=== PATIENT | male | born 1950 ===

== ENCOUNTER 2017-03-21 17:58 | Inpatient (IN) | payer MEDICARE ==
[2017-03-21] MEDS ORDERED: Sodium Chloride 0.9% 500 ML IV STA (18:31)
[2017-03-21 18:40] LABS: BASO # 0.1 K/uL (0.0-0.2); BASO % 0.6 % (0.0-2.0); EOS # 0.2 K/uL (0.0-0.7); EOS % 1.7 % (0.0-4.0); LYMPH # 2.5 K/uL (1.0-4.3); LYMPH % 27.2 % (20.0-40.0); MEAN CELL VOLUME 88.6 fl (80.0-94.0); MEAN CORPUSCULAR HEMOGLOBIN 29.6 pg (27.0-31.0); MEAN CORPUSCULAR HGB CONC 33.4 g/dL (33.0-37.0); MEAN PLATELET VOLUME 7.7 fl (7.2-11.7); MONO # 0.7 K/uL (0.0-0.8); MONO % 7.3 % (0.0-10.0); NEUT # 5.8 K/uL (1.8-7.0); NEUT % 63.2 % (50.0-75.0); NRBC % 0.1 % (0.0-0.0); RED CELL DISTRIBUTION WIDTH 13.3 % (11.5-14.5); WHITE BLOOD COUNT 9.1 K/uL (4.8-10.8)
--- NOTE | 2017-03-21 18:50 | ED PDOC ---
HPI: Chest Pain Time Seen by Provider: 03/21/17 18:13 Chief Complaint (Nursing): Chest Pain Chief Complaint (Provider): Chest Pain History Per: Patient History/Exam Limitations: no limitations Onset/Duration Of Symptoms: Days (x2 days) Current Symptoms Are (Timing): Still Present Additional Complaint(s): 67 y/o male with a past medical history of Pre-Diabetes who presents to the emergency department with a complaint of constant chest pain. Has had left shoulder pain x30 days. Describes pain as a poking sensation every time he takes a deep breath. Reports visiting Dr. Day who preformed EKG and x-ray with no acute findings on both. Denies taking medications for the relief of symptoms, nausea, vomiting, diarrhea, headache, abdominal pain, generalized weakness, numbness, dyspnea, or tingling. PMD: Dr. Mallory Day MD Past Medical History Reviewed: Historical Data, Nursing Documentation, Vital Signs Vital Signs: Last Vital Signs Temp 97.4 F L 03/21/17 18:15 Pulse 94 H 03/21/17 18:15 Resp 18 03/21/17 18:15 BP 138/80 03/21/17 18:15 Pulse Ox 97 03/21/17 18:57 - Medical History PMH: Diabetes (Pre-diabetic) - Surgical History Surgical History: No Surg Hx - Family History Family History: States: Unknown Family Hx - Living Arrangements Living Arrangements: With Family - Social History Current smoker - smoking cessation education provided: No Alcohol: Occasional Drugs: Denies - Immunization History Hx Tetanus Toxoid Vaccination: No Hx Influenza Vaccination: No Hx Pneumococcal Vaccination: No - Home Medications Home Medications: Ambulatory Orders Medication Instructions Recorded Tramadol HCl [Ultram] 50 mg PO BID PRN #14 tablet 08/27/16 oxyCODONE/Acetaminophen [Percocet 1 ea PO Q6H PRN #15 tab 09/10/16 5/325 mg Tab] - Allergies Allergies/Adverse Reactions: Allergies Allergy/AdvReac Type Severity Reaction Status Date / Time No Known Allergies Allergy Verified 03/21/17 18:07 Review of Systems ROS Statement: Except As Marked, All Systems Reviewed And Found Negative Cardiovascular: Positive for: Chest Pain (with deep breaths described as "poking.") Gastrointestinal: Negative for: Nausea, Vomiting, Abdominal Pain, Diarrhea Musculoskeletal: Positive for: Shoulder Pain (Left) Neurological: Negative for: Weakness, Numbness (or tingling), Headache Physical Exam - Reviewed Nursing Documentation Reviewed: Yes Vital Signs Reviewed: Yes - Physical Exam Appears: Positive for: Non-toxic, No Acute Distress Head Exam: Positive for: ATRAUMATIC, NORMAL INSPECTION, NORMOCEPHALIC Skin: Positive for: Normal Color, Warm, Dry Eye Exam: Positive for: Normal appearance, EOMI, PERRL ENT: Positive for: Normal ENT Inspection. Negative for: Pharyngeal Erythema Neck: Positive for: Normal, Supple Cardiovascular/Chest: Positive for: Regular Rate, Rhythm. Negative for: Murmur Respiratory: Positive for: Normal Breath Sounds. Negative for: Accessory Muscle Use, Wheezing, Respiratory Distress Gastrointestinal/Abdominal: Positive for: Normal Exam, Soft. Negative for: Tenderness Back: Positive for: Normal Inspection. Negative for: L CVA Tenderness, R CVA Tenderness Extremity: Positive for: Normal ROM. Negative for: Tenderness, Pedal Edema, Calf Tenderness Neurologic/Psych: Positive for: Alert, Oriented - Laboratory Results Result Diagrams: 03/21/17 18:30 03/21/17 18:30 Interpretation Of Abn Labs: no acute - ECG ECG: Positive for: Interpreted By Me, Viewed By Me ECG Rhythm: Positive for: Normal QRS, Normal ST Segment, Sinus Rhythm O2 Sat by Pulse Oximetry: 97 (RA) Pulse Ox Interpretation: Normal - Radiology X-Ray: Interpreted by Me, Viewed By Ny X-Ray Interpretation: No Acute Disease - Progress ED Course And Treament: 1928: Stable. AAOx3. Pain free. Tolerated PO. Spoke with Dr. Coley. Will admit tele obs. Will give further orders when pt. reaches floor. Medical Decision Making Medical Decision Making: Time: 18:13 Initial impression: Chest Pain Initial plan: --Electrocardiogram STAT --COMP Metabolic Panel --Troponin I Stat --EKG-ED (EDNURTX) --Partial Thromboplastin Time (COAG) --Prothrombin Time (COAG) --Chest Portable (RAD) --Aspirin 325 mg PO --Sodium Chloride 500 ml IV 100 mls/hr --Revaluation Scribe Attestation: Documented by Keisha Lipscomb, acting as a scribe for Vidal Harris MD. Provider Scribe Attestation: All medical record entries made by the Scribe were at my direction and personally dictated by me. I have reviewed the chart and agree that the record accurately reflects my personal performance of the history, physical exam, medical decision making, and the department course for this patient. I have also personally directed, reviewed, and agree with the discharge instructions and disposition. Disposition - Clinical Impression Clinical Impression: Chest pain - Patient ED Disposition Is Patient to be Admitted: Yes Counseled Patient/Family Regarding: Studies Performed, Diagnosis - Disposition Disposition Time: 19:33 Condition: FAIR - Pt Status Changed To: Hospital Disposition Of: Observation - POA Present On Arrival: None Core Measure Indicators: Chest Pain
[2017-03-21 18:51] LABS: PARTIAL THROMBOPLASTIN TIME 34.2 Seconds (25.6-37.1)
[2017-03-21 18:53] LABS: ALB/GLOB RATIO 1.3 (1.0-2.1); ALKALINE PHOSPHATASE 108 U/L (38-126); ALT/SGPT 62 U/L (21-72); AST/SGOT 47 U/L (17-59); BILIRUBIN,TOTAL 0.4 mg/dl (0.2-1.3); BLOOD UREA NITROGEN 17 mg/dl (9-20); CALCIUM 9.3 mg/dL (8.4-10.2); CARBON DIOXIDE 28 mmol/L (22-30); CHLORIDE 104 mmol/L (98-107); GFR AFRICAN-AMERICAN > 60; GLUCOSE,RANDOM 79 mg/dL (75-110); POTASSIUM 4.2 MMOL/L (3.6-5.0); SODIUM 141 mmol/l (132-148)
[2017-03-22 08:45] LABS: THYROID STIMULATING HORMONE 5.55 mIU/ML (0.46-4.68)
[2017-03-22] MEDS ORDERED: Enoxaparin 40 mg Syringe SC SCH (09:00)
--- NOTE | 2017-03-22 10:31 | CARD ---
APPROVED REPORT EXAM: Two-dimensional and M-mode echocardiogram with Doppler and color Doppler. Other Information Quality : GoodRhythm : NSR INDICATION Cardiac Disease: CAD 2D DIMENSIONS IVSd1.15 (0.7-1.1cm)LVDd4.07 (3.9-5.9cm) LVOT Diameter2.38 (1.8-2.4cm)PWd0.96 (0.7-1.1cm) IVSs0.97 (0.8-1.2cm)LVDs3.32 (2.5-4.0cm) FS (%) 18.4 %PWs1.13 (0.8-1.2cm) M-Mode DIMENSIONS Left Atrium (MM)4.09 (2.5-4.0cm)Aortic Root3.21 (2.2-3.7cm) Aortic Cusp Exc.2.03 (1.5-2.0cm) Mitral Valve MV E Msgsvdhh00.2cm/sMV DECEL [id number] A Hfpwqism54.0cm/s MV QXI35rtB/A ratio1.0MVA (PHT)3.16cm2 TDI Lateral E' Peak V9.37cm/sMedial E' Peak V9.29cm/sE/Lateral E'8.6 E/Medial E'8.6 LEFT VENTRICLE The left ventricle is normal in size. There is normal left ventricular wall thickness. The left ventricular function is normal. The left ventricular ejection fraction is - 70%. There is normal LV segmental wall motion. Transmitral Doppler flow pattern is Grade I-abnormal relaxation pattern. No left ventricle thrombus noted on this study. There is no ventricular septal defect visualized. There is no left ventricular aneurysm. There is no mass noted in the left ventricle. RIGHT VENTRICLE The right ventricle is normal size. There is normal right ventricular wall thickness. The right ventricular systolic function is normal. ATRIA The left atrium size is normal. The right atrium size is normal. The interatrial septum is intact with no evidence for an atrial septal defect. AORTIC VALVE The aortic valve is normal in structure and function. No aortic regurgitation is present. There is no aortic valvular stenosis. MITRAL VALVE The mitral valve is normal in structure and function. There is no evidence of mitral valve prolapse. There is no mitral valve stenosis. Mitral regurgitation is trace. TRICUSPID VALVE The tricuspid valve is normal in structure and function. There is no tricuspid valve regurgitation noted. There is no tricuspid valve prolapse or vegetation. There is no tricuspid valve stenosis. PULMONIC VALVE The pulmonary valve is normal in structure and function. Doppler studies of the PV were not performed. GREAT VESSELS The aortic root is normal in size. The IVC is normal in size and collapses >50% with inspiration. PERICARDIAL EFFUSION The pericardium appears normal. There is no pleural effusion. <Conclusion> The left ventricle is normal in size and wall thickness. The left ventricular function is normal. The left ventricular ejection fraction is - 70%. The left atrium, right ventricle and right atrium are normal in size. The mitral, aortic and tricuspid valves are normal. There is trace mitral regurgitation.
--- NOTE | 2017-03-22 10:47 | CARD ---
APPROVED REPORT EKG Measurement Heart [id number] <Conclusion> Normal sinus rhythm Early repolarization Normal ECG
--- NOTE | 2017-03-22 13:12 | RAD ---
COMPARISON: No prior study available comparison FINDINGS: LUNGS: Poor inspiration with low lung volumes, crowded bronchovascular markings and mild bibasilar atelectasis right greater than left. Possibility of developing infiltrate should be excluded followup radiographs. Questionable small right-sided effusion. There are 2 tiny densities seen in the left lower lung field which could represent vessel on end artifact however tiny granulomas or nodular densities not excluded. Followup nonemergent CT scan chest recommended for further evaluation to exclude other pathology. . Heart is upper limits of normal/ borderline enlarged. Mild multilevel degenerative spondylosis of the thoracic spine. There is a very subtle dextroscoliosis centered in the upper/mid thoracic region as well. Minor degenerative changes both acromioclavicular joints. Impression: Poor inspiration with low lung volumes, crowded bronchovascular markings and mild bibasilar atelectasis right greater than left. Possibility of developing infiltrate should be excluded followup radiographs. Questionable small right-sided effusion. There are 2 tiny densities seen in the left lower lung field which could represent vessel on end artifact however tiny granulomas or nodular densities not excluded. Followup nonemergent CT scan chest recommended for further evaluation to exclude other pathology. Note that this report was placed in PA review folder for followup
--- NOTE | 2017-03-22 14:14 | HP ---
CHIEF COMPLAINT: Chest pain. HISTORY OF PRESENT ILLNESS: This is a 67-year-old male, known case of diabetes, who was having chest pain, so the patient was brought to Emergency Room and was admitted for further management. REVIEW OF SYSTEMS: Positive for chest pain and left shoulder pain which is present for about 3 days, more so on taking deep breath. The patient was seen by Dr. Day his primary care physician. Re view of systems otherwise is negative for headache, dizziness, syncope, loss of consciousness, shortn ess of breath, nausea, vomiting, diarrhea, constipation, any new joint or extremity pain. Review of systems positive for chest pain. Review of systems of all other organ systems is unremarkable. PAST MEDICAL HISTORY: Significant for diabetes. PAST SURGICAL HISTORY: Unremarkable. PERSONAL HISTORY: The patient is currently a nonsmoker, nondrinker, no substance abuse. MEDICATIONS: The patient is on Tylenol and Percocet. ALLERGIES: The patient is not allergic to any medications. FAMILY HISTORY: Noncontributory. PHYSICAL EXAMINATION: GENERAL: Well-built, well-nourished 67-year-old male in no acute distress. VITAL SIGNS: Temperature 97.8, pulse 73, respirations 18, blood pressure 127/79, saturation 95%. HEENT: Pupils reacting to light. No JVD, no thyromegaly, no lymphadenopathy, no nystagmus. Normoce phalic, atraumatic skull. HEART: S1, S2 normal, regular. No significant murmur, gallop or rub is heard. LUNGS: Shows good bilateral air entry. No rales or rhonchi. ABDOMEN: Soft, nontender, no organomegaly, no fluid. Bowel sounds are plus. EXTERNAL GENITALIA: Appropriate per patient's age. RECTAL: Stool for occult blood is negative. EXTREMITIES: No edema, no calf swelling, no tenderness, no acute ischemia. CENTRAL NERVOUS SYSTEM: The patient is alert, awake, oriented x 3. There is no sign of any acute gr oss focal motor or sensory neurological deficit. DIAGNOSTIC DATA: Available diagnostic data reviewed. Sodium 141, potassium 4.2, chloride 104, bicar bonate 28, BUN 17, creatinine 0.8. SMA-12 is unremarkable. EKG does not reveal any acute ST-T leon es. Chest x-ray is clear. PT 11.4, PTT 34.2. WBC 9.1, hemoglobin 13.7, hematocrit 41, platelets 23 5. Telemetry monitoring does not reveal significant arrhythmias. ADMITTING IMPRESSION: Chest pain, rule out acute coronary syndrome, diabetes. PLAN: As ordered. Case and plan discussed with patient. Boaz Coley MD cc: [id number] TT: 03/22/2017 14:13:34 jn
--- NOTE | 2017-03-22 21:37 | CON ---
DATE: 03/22/2017 REASON FOR CONSULTATION: Chest pain. HISTORY OF PRESENT ILLNESS: The patient is a 67-year-old male who has no known prior cardiac history. He presented because of sharp retrosternal chest pain radiating to the left shoulder for almost a month. The patient denied any associated diaphoresis, dizziness or syncope. The patient is being followed by Dr. Day as an outpatient. The patient denies any chest pain at this time. SOCIAL HISTORY: The patient is a nonsmoker, nondrinker. He is . MEDICATIONS: Lovenox 40 mg subcutaneous daily. The patient received aspirin 325 mg earlier. REVIEW OF SYSTEMS: No nausea or vomiting, no abdominal pain, no fever or chills. PHYSICAL EXAMINATION: GENERAL: The patient is an elderly male who does not appear to be in any distress. VITAL SIGNS: Blood pressure 137/78, heart rate 72, temperature 97.8, respirations 16. HEENT: Normocephalic. NECK: No JVD. CHEST: Clear. HEART: S1, S2 regular. ABDOMEN: Soft. EXTREMITIES: No edema. LABORATORY DATA: CBC is entirely within normal limits. PT, PTT and INR are within normal limits. SMA-7 is entirely within normal limits. Two sets of troponins are negative. TSH is above normal at 5.55. EKG revealed sinus rhythm , early repolarization changes; however, the possibility of pericarditis exists. Chest x-ray is unremarkable. Echocardiographic study revealed normal ejection fraction. ASSESSMENT: Chest pain, consider acute pericarditis. RECOMMENDATIONS: Discontinue Lovenox and start NSAID therapy. Obtain a repeat 12-lead EKG. Obtain ESR and rheumatoid factor. Cristo Mercedes MD cc: [id number] TT: 03/22/2017 21:35:57 Confirmation # [id number] Dictation # [id number] chuck PAPPAS
[2017-03-23 05:40] LABS: HEMATOCRIT 38.3 % (35.0-51.0); MEAN CELL VOLUME 88.6 fl (80.0-94.0); MEAN CORPUSCULAR HGB CONC 33.8 g/dL (33.0-37.0); RED CELL DISTRIBUTION WIDTH 13.4 % (11.5-14.5); WHITE BLOOD COUNT 5.6 K/uL (4.8-10.8)
[2017-03-23 05:53] LABS: ALB/GLOB RATIO 1.1 (1.0-2.1); ALKALINE PHOSPHATASE 103 U/L (38-126); ALT/SGPT 55 U/L (21-72); AST/SGOT 34 U/L (17-59); BILIRUBIN,TOTAL 0.5 mg/dl (0.2-1.3); BLOOD UREA NITROGEN 15 mg/dl (9-20); CALCIUM 8.9 mg/dL (8.4-10.2); CARBON DIOXIDE 28 mmol/L (22-30); CHLORIDE 106 mmol/L (98-107); GFR AFRICAN-AMERICAN > 60; GLUCOSE,RANDOM 101 mg/dL (75-110); POTASSIUM 3.8 MMOL/L (3.6-5.0); SODIUM 142 mmol/l (132-148); TOTAL PROTEIN 7.1 G/DL (6.3-8.2)
--- NOTE | 2017-03-23 10:40 | PN ---
DATE: 03/23/2017 The patient is seen and examined. Interim events noted. Consults noted and appreciated. Cardiology followup and intervention noted and appreciated. The patient remains in progressive care unit on te lemetry monitoring. The patient is sleeping, arousable, feels okay. No specific complaint of chest pain or shortness of breath. Had episode of level 2-3 pain ____ with motion. PHYSICAL EXAMINATION: GENERAL: The patient is in no acute distress. VITAL SIGNS: Stable. HEART: S1, S2 normal regular. LUNGS: Good bilateral air entry. ABDOMEN: Soft, nontender. EXTREMITIES: No edema, no calf swelling, no tenderness, no acute ischemia. CENTRAL NERVOUS SYSTEM: Essentially unchanged. DIAGNOSTIC DATA: Available diagnostic data reviewed. Telemetry monitoring does not show any signifi cant arrhythmias. Echocardiogram is unremarkable. Cardiology consult noted and appreciated. The patient is probably ____. ESR was 53. PLAN: As ordered. Case and plan discussed with the patient. Boaz Coley MD cc: [id number] TT: 03/23/2017 10:39:25 Confirmation # [id number] Dictation # [id number] kamilah
--- NOTE | 2017-03-23 13:31 | CARD ---
APPROVED REPORT EKG Measurement Heart [id number] <Conclusion> Normal sinus rhythm High J [place]
--- NOTE | 2017-03-23 17:27 | PN ---
DATE: 03/23/2017 SUBJECTIVE: The patient's chest pain has improved on nonsteroidal anti-inflammatory agents, Motrin. No shortness of breath. PHYSICAL EXAMINATION: VITAL SIGNS: Blood pressure 149/78, heart rate 67, temperature 98.2, respirations 16. HEENT: Normocephalic. CHEST: Clear. HEART: S1, S2 regular. No pericardial rub. EXTREMITIES: No edema. LABORATORIES: Today's SMA-7 is within normal limits. Today, the CBCs practically within normal li mits except for RBC of 4.33. Rheumatoid panel is negative. ASSESSMENT: Acute pericarditis. RECOMMENDATIONS: Continue current ibuprofen and Pepcid. A repeat 12-lead EKG. Cristo Mercedes MD cc: [id number] TT: 03/23/2017 17:26:44 Confirmation # [id number] Dictation # [id number] mn
[2017-03-24 05:59] LABS: HEMATOCRIT 41.8 % (35.0-51.0); MEAN CELL VOLUME 88.8 fl (80.0-94.0); MEAN CORPUSCULAR HEMOGLOBIN 29.5 pg (27.0-31.0); MEAN CORPUSCULAR HGB CONC 33.2 g/dL (33.0-37.0); RED CELL DISTRIBUTION WIDTH 13.1 % (11.5-14.5); WHITE BLOOD COUNT 7.5 K/uL (4.8-10.8)
[2017-03-24 06:44] LABS: ALB/GLOB RATIO 1.2 (1.0-2.1); ALKALINE PHOSPHATASE 104 U/L (38-126); ALT/SGPT 52 U/L (21-72); AST/SGOT 33 U/L (17-59); BILIRUBIN,TOTAL 0.4 mg/dl (0.2-1.3); BLOOD UREA NITROGEN 18 mg/dl (9-20); CALCIUM 9.2 mg/dL (8.4-10.2); CARBON DIOXIDE 27 mmol/L (22-30); CHLORIDE 105 mmol/L (98-107); GFR AFRICAN-AMERICAN > 60; GLUCOSE,RANDOM 101 mg/dL (75-110); POTASSIUM 4.2 MMOL/L (3.6-5.0); SODIUM 142 mmol/l (132-148); TOTAL PROTEIN 7.5 G/DL (6.3-8.2)
[2017-03-24 08:00] VITALS: RESP 16
[2017-03-24 12:07] VITALS: BP 118/71; PULSE 71; TEMP 97.9; O2SAT 95
--- NOTE | 2017-03-24 18:04 | PN ---
DATE: 03/24/2017 HISTORY OF PRESENT ILLNESS: The patient seen and examined. Interim events noted. Consults noted an d appreciated. Cardiology followup and intervention noted and appreciated. The patient remains in p rogressive care unit on telemetry monitoring. The patient feels okay. Chest pain is gone. The jovani ent is ambulatory and doing his ADLs. Also, ambulating around the unit without any discomfort or tiffanie n. PHYSICAL EXAMINATION: GENERAL: The patient is distress. VITAL SIGNS: Stable. HEART: S1, S2 normal, regular. LUNGS: Good bilateral air entry. ABDOMEN: Soft, nontender. EXTREMITIES: No edema, no calf swelling, no tenderness, no acute ischemia. CENTRAL NERVOUS SYSTEM: Essentially unchanged. DIAGNOSTIC DATA: Available diagnostic data reviewed. ASSESSMENT AND PLAN: Overall, patient's general medical condition is stable. Telemetry monitoring d oes not reveal significant arrhythmia. The patient will be discharged home today. Case and plan dis cussed with patient. The patient will be followed up by primary care physician and customs consultant. Boaz Coley MD cc: [id number] TT: 03/24/2017 18:03:14 Confirmation # [id number] Dictation # [id number] chuck
--- NOTE | 2017-03-24 18:15 | DS ---
This is a 67-year-old male who was admitted with chest. During work up the patient was found to have acute pericarditis for which the patient was treated with antiinflammatory. The patient responded v josephine well. Acute WA was ruled out. Cardiology was done, suggestions were followed. The patient josias me medically stable and is being discharged home. The patient will be followed up his primary care pennie randhawa and business system consultant. Boaz Coley MD cc: [id number] TT: 03/24/2017 18:15:23 dn
--- NOTE | 2017-03-24 23:59 | CARD ---
APPROVED REPORT EKG Measurement Heart [id number] [place] 156P9 [id number] <Conclusion> Normal sinus rhythm Normal ECG
[2017-03-25] MEDS ORDERED: Levothyroxine 25 MCG TAB PO SCH (06:30)
== END 2017-03-24 14:24 | disposition home or self-care (01) | DRG 316 ==
LOC: H.ER 17:58 → H.ERHOLD 19:25 → H.TEL 21:25 → OBSVTOIN 03-22 19:25
PROVIDERS: ADMIT Internal Medicine; ATTEND Internal Medicine
DX: I30.9 Acute pericarditis, unspecified (principal); E11.9 Type 2 diabetes mellitus without complications